=== PATIENT | female | born 1980 | race Two or more races ===

== ENCOUNTER → 2024-09-24 | Outpatient (CLI) | payer OTHER, SELFPAY ==
[2024-09-24 17:33] LABS: Basophils % (Auto) 0 % (0-2.5); Eosinophils # (Auto) 0.1 Thou/mm3 (0.0-0.5); Eosinophils % (Auto) 1 % (0-10); Hematocrit 37.5 % (36.0-46.0); Hemoglobin 13.4 g/dL (12.0-16.0); Immature Granulocytes % (Auto) 0 % (0-0); Immature Granulocytes Auto 0.01 Thou/mm3 (0.00-0.00); Lymphocytes # (Auto) 2.1 Thou/mm3 (1.0-4.8); Lymphocytes % (Auto) 38 % (10-50); Mean Corpuscular HGB Conc 35.7 g/dl (31.0-37.0); Mean Corpuscular Hemoglobin 32.4 pg (25.0-35.0); Mean Corpuscular Volume 91 fL (80-100); Monocytes # (Auto) 0.7 Thou/mm3 (0.0-0.8); Monocytes % (Auto) 13 % (0-12); Neutrophils # (Auto) 2.7 Thou/mm3 (1.8-7.7); Neutrophils % (Auto) 48 % (37-80); Nucleated Red Blood Cell % 0 /100 WBC (0); Platelet Count 259 Thou/mm3 (140-440); RDW Standard Deviation 38.7 fL (36.4-46.3); Red Blood Count 4.14 Miln/mm3 (4.00-5.20); White Blood Count 5.6 Thou/mm3 (3.6-11.0)
[2024-09-24 17:38] LABS: INR 0.9 (0.9-1.3); Prothrombin Time 10.4 Seconds (9.0-12.2)
[2024-09-24 18:00] LABS: Sed Rate (ESR) 19 mm/hr (0-20)
[2024-09-24 18:11] LABS: Alanine Aminotransferase 42 U/L (10-49); Albumin, Serum 4.1 gm/dL (3.5-5.0); Alkaline Phosphatase 55 U/L (46-116); Anion Gap 10 (7-16); Aspartate Amino Transferase 28 U/L (0-34); BUN/Creatinine Ratio 14 Ratio (12-20); Bilirubin,Direct 0.2 mg/dL (0.0-0.3); Bilirubin,Total 0.5 mg/dL (0.3-1.2); Blood Urea Nitrogen 10 mg/dL (9-23); C-Reactive Protein 2.8 mg/dL (0.0-0.9); Calcium 8.7 mg/dL (8.3-10.6); Chloride 102 mMol/L (98-107); Creatinine (Component) 0.7 mg/dL (0.6-1.3); Glucose 116 mg/dL (74-106); Osmolality,Calculated 273 (275-295); Potassium 3.7 mMol/L (3.4-5.1); Sodium 137 mMol/L (136-145); eGFR > 60 See Note
[2024-09-24 18:48] LABS: Carcinoembryonic Antigen < 0.5 ng/mL (0.0-5.0); Hepatitis A Antibody IgM Non Reactive (Non React); Hepatitis B Core Antibody IgM Non Reactive (Non React); Hepatitis B Surface Antigen Non Reactive (Non React); Hepatitis C Antibody Non Reactive (Non React)
[2024-10-07 06:52] LABS: HIV Ag/Ab, 4th Gen NON-REACTIVE; Immunoglobulin A 204 mg/dL (47-310); tTG Ab, IgA <1.0 U/mL
== END | disposition home or self-care (01) ==
LOC: COPL 16:38
PROVIDERS: PCP Nurse Practitioner Family; Referring Provider Internal Medicine Gastroenterology; Visit Provider Internal Medicine Gastroenterology
DX: K57.32 Diverticulitis of large intestine without perforation or abscess without bleeding (principal)
CPT/HCPCS: 36415; 80048; 80074; 80076; 82378; 82784; 85025; 85610; 85652; 86140; 86364; 87389

== ENCOUNTER → 2024-10-03 | Outpatient (CLI) | payer BC, SELFPAY ==
[2024-10-03 10:41] LABS: Collection Type, Urine Clean Catch
[2024-10-03 11:10] LABS: Basophils # (Auto) 0.1 Thou/mm3 (0.0-0.2); Basophils % (Auto) 1 % (0-2.5); Eosinophils # (Auto) 0.1 Thou/mm3 (0.0-0.5); Eosinophils % (Auto) 1 % (0-10); Hematocrit 35.3 % (36.0-46.0); Hemoglobin 12.7 g/dL (12.0-16.0); Immature Granulocytes % (Auto) 1 % (0-0); Immature Granulocytes Auto 0.14 Thou/mm3 (0.00-0.00); Lymphocytes # (Auto) 3.9 Thou/mm3 (1.0-4.8); Lymphocytes % (Auto) 31 % (10-50); Mean Corpuscular Hemoglobin 32.2 pg (25.0-35.0); Mean Corpuscular Volume 90 fL (80-100); Monocytes # (Auto) 1.5 Thou/mm3 (0.0-0.8); Monocytes % (Auto) 12 % (0-12); Neutrophils # (Auto) 6.9 Thou/mm3 (1.8-7.7); Neutrophils % (Auto) 55 % (37-80); Nucleated Red Blood Cell % 0 /100 WBC (0); Platelet Count 447 Thou/mm3 (140-440); RDW Standard Deviation 38.5 fL (36.4-46.3); Red Blood Count 3.94 Miln/mm3 (4.00-5.20); White Blood Count 12.6 Thou/mm3 (3.6-11.0)
[2024-10-03 11:19] LABS: Bacteria,Urine Rare; Bilirubin,Urine Negative (Negative); Blood,Urine 2+ (Negative); Clarity,Urine Clear (Clear/Hazy); Color,Urine Lt-Yellow (Lt Yel-Yel); Culture Indicated,Urine Not Indicated; Glucose, Urine Negative (Negative); Ketones,Urine Negative (Negative); Leukocyte Esterase,Urine Negative (Negative); Nitrite,Urine Negative (Negative); PH,Urine 6.5 (5.0-7.0); Protein,Urine Negative (Neg - Trace); RBC,Urine 2 /hpf (0-3); Specific Gravity,Urine 1.014 (1.001-1.035); Squamous Epithelial Cell,Urine < 1 /hpf (0-5); Urobilinogen,Urine Negative mg/dL (0.0-1.0); WBC,Urine 1 /hpf (0-5)
[2024-10-03 11:38] LABS: Alanine Aminotransferase 27 U/L (10-49); Albumin, Serum 4.2 gm/dL (3.5-5.0); Albumin/Globulin Ratio 1.6 (1.2-2.2); Alkaline Phosphatase 52 U/L (46-116); Anion Gap 9 (7-16); Aspartate Amino Transferase 19 U/L (0-34); BUN/Creatinine Ratio 14 Ratio (12-20); Bilirubin,Total 0.7 mg/dL (0.3-1.2); Blood Urea Nitrogen 10 mg/dL (9-23); Calcium 9.5 mg/dL (8.3-10.6); Calcium (Corrected) 9.5 mg/dL (8.5-10.1); Carbon Dioxide 26.6 mMol/L (20.0-31.0); Cardiac Risk Estimate 3.3 RATIO (3.7-5.6); Chloride 103 mMol/L (98-107); Cholesterol 192 mg/dL (132-200); Creatinine (Component) 0.7 mg/dL (0.6-1.3); Globulin 2.7 gm/dL (2.3-3.5); Glucose 96 mg/dL (74-106); HDL Cholesterol 58 mg/dL (40-60); LDL Cholesterol,Calculated 115 mg/dL (0-130); Osmolality,Calculated 276 (275-295); Potassium 4.1 mMol/L (3.4-5.1); Sodium 139 mMol/L (136-145); Thyroid Stimulating Hormone 0.94 uIU/mL (0.55-4.78); Total Protein 6.9 gm/dL (5.7-8.2); Triglycerides 96 mg/dL (30-150); eGFR > 60 See Note
[2024-10-09 06:26] LABS: Calprotectin, Stool* 15 mcg/g
== END | disposition home or self-care (01) ==
LOC: COPL 10:02
PROVIDERS: PCP Nurse Practitioner Family; Referring Provider Nurse Practitioner Family; Visit Provider Nurse Practitioner Family
DX: Z00.00 Encounter for general adult medical examination without abnormal findings (principal); K57.32 Diverticulitis of large intestine without perforation or abscess without bleeding
CPT/HCPCS: 36415; 80053; 80061; 81001; 83993; 84443; 85025

== ENCOUNTER → 2024-11-03 | Outpatient (CLI) | payer BC, SELFPAY ==
[2024-11-03 11:00] LABS: Quantiferon-TB* See Sep Rpt
[2024-11-07 06:33] LABS: Helicobacter pylori Ag, Stool* NOT DETECTED (NOT DETECTED)
== END | disposition home or self-care (01) ==
PROVIDERS: PCP Family Medicine; Referring Provider Internal Medicine Gastroenterology; Visit Provider Internal Medicine Gastroenterology
DX: K57.32 Diverticulitis of large intestine without perforation or abscess without bleeding (principal)
CPT/HCPCS: 86480; 87338